=== PATIENT | female | born 1950 | race Caucasian/White ===

== ENCOUNTER 2025-01-27 12:11 | Emergency (ER) | payer MEDICARE, SELFPAY ==
[2025-01-27 12:17] VITALS: BP 133/86
--- NOTE | 2025-01-27 13:13 | ED.GENMED ---
Addendum entered and electronically signed by David Medina PA-C 01/30/25 14:54:
Urine culture positive for E. coli. Spoke with called in Keflex to their pharmacy in [place]
Original Note:
History of Present Illness
General
Chief Complaint: Abdominal Symptoms
Source: patient and spouse
Exam Limitations: none
Time Seen by Provider: 01/27/25 12:55
Nursing documentation reviewed up to this point in time: agreed with
History of Present Illness
History of Present Illness:
The patient is a 74-year-old female w h/o Altzheimer's dementia, DVT on Eliquis, fatty liver who presented with abdominal discomfort. states that she has been fatigued, he had difficulty waking her up this morning, she was complaining that
her stomach did not feel good and when he touched it she cried out in pain. Patient denies abdominal pain at this point. The patient expressed that the pain initially felt uncomfortable and occasionally painful, yet manageable. She had urinary
incontinence in bed this a.m., which is not typical per
She had a regular bowel movement this a.m.
at bedside also reported the patient gained 20 lbs in past 2 months, without a notable increase in food intake but states 'she is a junk food junky.' Lately, has been much less ambulatory, less steady on her feet. There was no report of
nausea, vomiting, diarrhea, or constipation at present. , and she had an incident of slipping off a chair earlier this week. She feels unsteady on her feet, and her mobility has been recently deteriorating. She typically does not use walker or cane
Past History
Past History
ED Past Medical History: CAD, Psychiatric (Alzheimer's dementia) and Other
ED Past Surgical History: Cholecystectomy, Gynecological and Other (Gastric sleeve)
Social History
Tobacco: Non-smoker
Alcohol: None
Personal:
Living: with family
Review of Systems
Review of Systems
Allergies reviewed?: Yes
All Other Systems: ROS reviewed and negative except as documented in HPI and ROS
Constitutional: Reports fatigue; Denies fever
Respiratory: Denies trouble breathing
Cardiac: Denies chest pain or syncope
ABD/GI: Reports abdominal pain; Denies nausea, vomiting, diarrhea, constipated, bloody stools, black stools or anorexia
: Denies dysuria, frequency or difficulty voiding
Musculoskeletal: Reports edema
Skin: Reports no symptoms
Neurological: Reports no symptoms
Phy Exam
Physical Exam
Physical Exam:
GENERAL: No acute distress. A&Ox3.
CONSTITUTIONAL: Afebrile.
EYES: clear, conjunctivae normal
ENMT: moist mucus membranes, Pharynx nl
RESPIRATORY: Regular respirations, nonlabored, lungs clear.
CARDIOVASCULAR: Regular rate and rhythm, no murmurs, no rubs.
GI: Soft, obese, tender mid to left lower abdomen, normal BS
MUSCULOSKELETAL: Moves with ease. Well perfused. mild bilateral ankle edema
SKIN: Warm, dry, pink
PSYCH: Normal mood and affect. Well kept, interactive and appropriate
NEUROLOGIC: Awake, alert and oriented. Mild confusion at times, looking to to answer questions. No focal neurological deficits
Course
Orders/Labs/Results
Orders:
Orders
01/27/25 13:11
Straight cath- Treatment ONCE
01/27/25 13:12
CT Abd/Pel (IV only)-DH only Urgent
Comment:
Reason For Exam: Abdominal pain
01/27/25 13:54
Complete Blood Count/With Diff Urgent
Comprehensive Metabolic Panel Urgent
Lipase Urgent
NT-proBNP Urgent
Urinalysis Reflex To Culture Urgent
Date Specimen was Collected: 01/27/25
Time Specimen was Collected: 13:36
Urine Microscopic Reflex Cult Urgent
Urine Culture Urgent
MYLA Source: U
Specimen Description:
Date Specimen was Collected: 01/27/25
Time Specimen was Collected: 13:36
Abnormal Lab Results
01/27/25
13:54
RBC 4.17 L 10^6/uL
(4.20-5.40)
MCHC 32.5 L g/dL
(33.0-37.0)
Chloride 109 H mmol/L
(98-107)
Total Protein 6.1 L g/dl
(6.3-8.2)
Urine Nitrite (Reflex) Positive A
(Negative)
Urine Bacteria (Reflex) Many A
(Negative)
01/27/25 13:54
01/27/25 13:54
Vital Signs
Initial and Last Documented VS:
Initial Vital Signs
Temp Pulse Resp BP Pulse Ox
98.3 F 71 16 133/86 96
01/27/25 12:17 01/27/25 12:17 01/27/25 12:17 01/27/25 12:17 01/27/25 12:17
Last Documented Vital Signs
Temp Pulse Resp BP Pulse Ox
98.3 F 126 16 110/89 99
01/27/25 12:17 01/27/25 16:18 01/27/25 14:02 01/27/25 15:01 01/27/25 15:46
MDM/Problems Addressed
Differential Diagnosis Includes:
UTI, dehydration, constipation, diverticulitis, bowel obstruction
MDM/Problems Addressed:
The patient is a 74-year-old female w h/o Altzheimer's dementia, DVT on Eliquis, fatty liver who presented with abdominal discomfort. states that she has been fatigued, he had difficulty waking her up this morning, she was complaining that
her stomach did not feel good and when he touched it she cried out in pain. Patient denies abdominal pain at this point. The patient expressed that the pain initially felt uncomfortable and occasionally painful, yet manageable. She had urinary
incontinence in bed this a.m., which is not typical per
She had a regular bowel movement this a.m.
at bedside also reported the patient gained 20 lbs in past 2 months, without a notable increase in food intake but states 'she is a junk food junky.' Lately, has been much less ambulatory, less steady on her feet. There was no report of
nausea, vomiting, diarrhea, or constipation at present. , and she had an incident of slipping off a chair earlier this week. She feels unsteady on her feet, and her mobility has been recently deteriorating. She typically does not use walker or cane
Afebrile, NAD
Obese, mild tenderness mid to left lower abdomen
Problem list
Acute:
- Abdominal discomfort
- Recent significant weight gain
- Episode of urinary incontinence
Chronic:
- History of blood clots in the legs
Plan:- Order basic laboratory workup.
- Perform a computed tomography scan of the abdomen.
- Insert a catheter to obtain a clean urine sample.
- Assess and monitor for any abnormalities from the blood work and imaging.
3:00 p.m.
CBC unremarkable
CMP Normal
Lipase normal
U/A: Negative
CT abd/pelvis with IV contrast: Radiology report read: IMPRESSION:
No acute inflammatory process within the abdomen or pelvis.
Diverticulosis without acute diverticulitis. No bowel obstruction. The appendix is normal.
No obstructive uropathy.
Fatty infiltration of liver.
Nothing really to explain patient's episode of pain this morning
Copy of all results provided to patient
Patient ambulated out with normal gait at discharge
*Pulse Oximetry
SaO2: 96
Oxygen Mode of Delivery: Room air
Patient hypoxic: no
*Critical Care Note
Total Time (30-74mins, 75-104mins- exclusive of procedures): Not Applicable
Patient Management
Social determinants of health affecting care: Strong social support and Other (Visiting from [place].)
ED Attending Note
-
Portions of this chart may have been created with voice recognition software.� Occasional wrong word or��sound alike� substitutions may have occurred due to the inherent limitations of voice recognition software.
Discharge Plan
Departure
Patient Disposition: Home (Routine Discharge)
Date of Disposition: 01/27/25
Time of Disposition: 17:49
Patient with high blood pressure during this ER visit?: No
Condition: Good
Discharge Problem:
Abdominal pain
Instructions: Abdominal Pain
Referrals:
UNKNOWN - PT DOES,NOT KNOW [Family Provider]
Activity Restrictions/Additional Instructions:
As we discussed, nothing worrisome in your workup here today. Take copies of all your results and testing with you when you follow-up with your family physician.
Interventions
Interventions:
*Risk Screen - Suicide Last Done: 01/27/25 12:58
*General Assessment Last Done: 01/27/25 12:59
*Neglect/Abuse Screening Last Done: 01/27/25 12:58
*ED- Fall Risk Assessment Last Done: 01/27/25 14:03
*ED COVID-19 Vaccine History Last Done: 01/27/25 14:03
*Nursing Disposition Last Done: 01/27/25 18:15
TB-Rpomwd-Dbyehszxdv Assessment Last Done: 01/27/25 14:04
Discharge Date and Time
Discharge Date/Time: 01/27/25 18:15
Print Language: WOLOF
[2025-01-27 14:02] VITALS: BP 157/86
[2025-01-27 14:15] LABS: % Basophils 0.5 % (0-2); % Eosinophils 0.8 % (0-6); % Immature Granulocytes 0.3 % (0-0.5); % Lymphocytes 22.1 % (20.5-51.1); % Monocytes 8.8 % (1.7-9.3); % Neutrophils 67.5 % (42.2-75.2); Absolute Eosinophils 0.1 10^3/uL (0-0.7); Absolute Lymphocytes 1.4 10^3/uL (1.2-3.4); Absolute Monocytes 0.6 10^3/uL (0.1-0.6); Absolute Neutrophils 4.4 10^3/uL (1.4-6.5); Hematocrit 39.4 % (37.0-47.0); Hemoglobin 12.8 g/dL (12.0-16.0); Mean Corp Hgb Conc. 32.5 g/dL (33.0-37.0); Mean Corpuscular Hgb 30.7 pg (27.0-31.0); Mean Corpuscular Volume 94.5 fL (81.0-99.0); Mean Platelet Volume 8.5 fL (7.4-10.4); Nucleated Red Blood Cells % 0 %; Platelet Count 241 10^3/uL (130-400); Red Blood Cell Count 4.17 10^6/uL (4.20-5.40); Red Cell Dist. Width 13.2 % (11.5-14.5); White Blood Cell Count 6.5 10^3/uL (4.8-10.8)
[2025-01-27 14:28] LABS: Urine Albumin Negative (Neg - Trace); Urine Bilirubin Negative (Negative); Urine Character Slightly Cloudy (Clear); Urine Color Yellow; Urine Glucose Negative (Negative); Urine Ketone Negative (Negative); Urine Leukocyte Negative (Negative); Urine Nitrite Positive (Negative); Urine Occult Blood Negative (Negative); Urine Urobilinogen Negative (Neg - 1+)
[2025-01-27 14:31] LABS: ALT (SGPT) 19 U/L (0-35); AST (SGOT) 22 U/L (14-36); Albumin 3.8 g/dl (3.5-5.0); Alkaline Phosphatase 66 U/L (38-126); Blood Urea Nitrogen 17 mg/dl (7-17); Calcium 9.1 mg/dl (8.4-10.2); Carbon Dioxide 27 mmol/L (22-30); Chloride 109 mmol/L (98-107); Glucose 96 mg/dl (70-99); Lipase 150 U/L (23-300); Potassium 4.1 mmol/L (3.5-5.1); Sodium 141 mmol/L (135-145); Total Bilirubin 0.6 mg/dl (0.2-1.3); Total Protein 6.1 g/dl (6.3-8.2); eGFR > 60.00
[2025-01-27 15:01] VITALS: BP 110/89
[2025-01-27 15:07] LABS: Urine Bacteria Many (Negative); Urine Red Blood Cell 0-2 /HPF (0-2); Urine Squamous Cell 0-2 /LPF (Few); Urine White Cell 0-2 /HPF (0-5)
[2025-01-27 15:34] LABS: NT-proBNP 147 pg/ml
== END 2025-01-27 18:15 | disposition home or self-care (01) ==
LOC: EMR 12:11
PROVIDERS: Registered Nurse; EMERGENCY PHYSICIAN Emergency Medicine
DX: R10.9 Unspecified abdominal pain (principal); F02.80 Dementia in other diseases classified elsewhere, unspecified severity, without behavioral disturbance, psychotic disturbance, mood disturbance, and anxiety; G30.9 Alzheimer's disease, unspecified; I25.10 Atherosclerotic heart disease of native coronary artery without angina pectoris; Z79.01 Long term (current) use of anticoagulants; Z90.49 Acquired absence of other specified parts of digestive tract
CPT/HCPCS: 99284; 74177; 80053; 81003; 81015; 83690; 83880; 85025; 87077; 87086; 87186; Q9967